=== PATIENT | female | born 1970 | race Caucasian/White ===

== ENCOUNTER → 2020-07-17 | Outpatient (CLI) | payer BC ==
--- NOTE | 2020-07-17 10:59 | USB ---
Reason for exam: additional evaluation requested from abnormal screening. Physical Findings: Nurse did not find any significant physical abnormalities on exam. US Breast Workup Limited RT Right limited breast ultrasound including focal area of concern, retroareolar and axilla demonstrates no cystic or solid lesion seen. These results were verbally communicated with the patient and result sheet given to the patient on 07/17/20. ASSESSMENT: Incomplete: need additional imaging evaluation, BI-RAD 0 RECOMMENDATION: Special view mammogram of the right breast.
--- NOTE | 2020-07-17 11:00 | MM ---
Reason for exam: additional evaluation requested from abnormal screening. Last mammogram was performed 1 month ago. Physical Findings: Nurse did not find any significant physical abnormalities on exam. MG 3D Work Up W/Cad RT Spot compression CC, spot compression MLO, and LM view(s) were taken of the right breast. Prior study comparison: June 28, 2020, bilateral MG 3d screening mammo w/cad. Focal asymmetry upper outer right breast is less conspicuous. These results were verbally communicated with the patient and result sheet given to the patient on 07/17/20. ASSESSMENT: Probably benign, BI-RAD 3 RECOMMENDATION: Follow-up diagnostic mammogram of the right breast in 6 months.
== END | disposition home or self-care (01) ==
LOC: RADUSWWP 07:36
PROVIDERS: ATTEND Family Medicine
DX: R92.8 Other abnormal and inconclusive findings on diagnostic imaging of breast (principal)
CPT/HCPCS: 77061; 77065

== ENCOUNTER → 2021-03-06 | Outpatient (CLI) | payer OTHER ==
--- NOTE | 2021-03-06 09:22 | XR ---
EXAMINATION TYPE: XR chest 2V DATE OF EXAM: 03/06/2021 COMPARISON: None HISTORY: R05 TECHNIQUE: Frontal and lateral views of the chest are obtained. FINDINGS: The left hemidiaphragm is elevated. There is no evident pneumonia or pleural effusion, no pneumothorax. Cardiac mediastinal silhouette is within normal limits. Suspect some minimal basilar de nsity along the left hemidiaphragm. IMPRESSION: Elevated left hemidiaphragm, correlate for possible diaphragmatic paralysis. There is pr obably some basilar atelectasis along the diaphragm.
== END | disposition home or self-care (01) ==
LOC: RADXRMAIN 08:38
PROVIDERS: ATTEND Family Medicine
DX: J98.11 Atelectasis (principal); J98.6 Disorders of diaphragm
CPT/HCPCS: 71046